=== PATIENT | male | born 1965 | race American Indian/Alaskan Native ===

== ENCOUNTER 2017-02-23 13:22 | Emergency (ER) | payer MEDICAID ==
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
[2017-02-23] MEDS: KEPPRA PO ONE (22:24)
[2017-02-23] MEDS: DILANTIN PO ONE (22:24)
[2017-02-23 23:04] VITALS: BP 108/65
== END 2017-02-23 23:05 | disposition home or self-care (01) ==
LOC: ED 13:22
DX: G40.909 Epilepsy, unspecified, not intractable, without status epilepticus (principal)
CPT/HCPCS: 36415; 80184; 80185; 82962; 99284

== ENCOUNTER 2017-04-01 13:00 | Emergency (ER) | payer MEDICAID ==
[2017-04-01] MEDS ORDERED: DILANTIN PO ONE (15:56)
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
[2017-04-01 17:28] VITALS: BP 101/63
== END 2017-04-01 16:40 | disposition home or self-care (01) ==
LOC: ED 13:00
DX: R56.9 Unspecified convulsions (principal); F12.10 Cannabis abuse, uncomplicated
CPT/HCPCS: 99282

== ENCOUNTER 2018-04-13 02:21 | Emergency (ER) | payer MEDICAID ==
--- NOTE | 2018-04-13 05:09 | XRay Report ---
FINAL REPORT PROCEDURE: XR SPINE LUMBOSACRAL 2-3V TECHNIQUE: Lumbar spine radiographs, frontal and lateral views. CPT 27209 HISTORY: mid to lower back pain s/p GLF COMPARISON: No prior studies are available for comparison. FINDINGS: Alignment: Normal . Vertebral body heights/Disk spaces: Normal . Fracture(s): None . Facets: Normal . Bone mineralization: Normal . IMPRESSION: Normal Examination
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
[2018-04-13] MEDS ORDERED: MOTRIN PO ONE (07:42)
[2018-04-13] MEDS ORDERED: FLEXERIL PO ONE (07:42)
[2018-04-13] MEDS ORDERED: BOOSTRIX IM ONE (07:54)
[2018-04-13 08:17] VITALS: BP 114/77
== END 2018-04-13 08:16 | disposition home or self-care (01) ==
LOC: ED 02:21
DX: S91.332A Puncture wound without foreign body, left foot, initial encounter (principal); S39.92XA Unspecified injury of lower back, initial encounter; W18.30XA Fall on same level, unspecified, initial encounter; Y93.89 Activity, other specified; Y92.89 Other specified places as the place of occurrence of the external cause; Y99.8 Other external cause status
CPT/HCPCS: 72100; 90471; 90715; 99283

== ENCOUNTER 2021-05-26 19:16 | Emergency (ER) | payer MEDICAID ==
[2021-05-26 21:20] VITALS: BP 106/70
--- NOTE | 2021-05-26 21:21 | Event Note ---
ED Screening Note Date of service: 05/26/21 Time: 21:20 ED Screening Note: Patient 56-year-old male history of hypertension who presents with brother as caregiver, patient diagnosed with dementia, brother states patient fell in shower complains of left rib pain and dysuria. Has been no fever , chills. No nausea or vomiting. Is been no hemoptysis. Back pain described as 5/10 aching spasms. There is no numbness, tingling, or paralysis. There is been no loss or decrease in bowel or bladder function. This initial assessment/diagnostic orders/clinical plan/treatment(s) is/are subject to change based on patients health status, clinical progression and re- assessment by fellow clinical providers in the ED. Further treatment and workup at subsequent clinical providers discretion. Patient/guardian urged not to elope from the ED as their condition may be serious if not clinically assessed and managed. Initial orders include:
--- NOTE | 2021-05-26 22:10 | XRay Report ---
LEFT RIBS 4 VIEWS INDICATION / CLINICAL INFORMATION: fall lt lower rib pain. COMPARISON: None available. FINDINGS: RIBS: Nondisplaced fracture of the lateral left ninth rib, best appreciated on image 4. No other rib fractures are identified. LUNGS: No acute findings. No pneumothorax. Signer Name: Sander Garcia MD Signed: 05/26/2021 10:06 PM Workstation Name: [id number]
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
[2021-05-26] MEDS ORDERED: HYDROcodone/ACETAMINOPHEN 5-325 MG TAB PO ONE (23:17)
== END 2021-05-26 23:18 | disposition home or self-care (01) ==
LOC: ED 19:16
DX: S22.32XA Fracture of one rib, left side, initial encounter for closed fracture (principal); Z79.899 Other long term (current) drug therapy; Z86.69 Personal history of other diseases of the nervous system and sense organs; Z98.890 Other specified postprocedural states; W18.2XXA Fall in (into) shower or empty bathtub, initial encounter; Y93.89 Activity, other specified; Y92.89 Other specified places as the place of occurrence of the external cause; Y99.8 Other external cause status